=== PATIENT | male | born 1985 | race Caucasian/White ===

== ENCOUNTER 2021-08-31 12:38 | Emergency (ER) | payer SELFPAY ==
[2021-08-31] MEDS ORDERED: LACTATED RINGERS 1,000 ML IV STA (12:41)
[2021-08-31] MEDS ORDERED: FAMOTIDINE 20MG/2ML IV (PEPCID) IV STA (12:41)
--- NOTE | 2021-08-31 12:41 | ED General ---
General Stated Complaint: CHEST PAINS History of Present Illness Date Seen by Provider: Aug 31, 2021 Time Seen by Provider: 12:41 Initial Comments 36-year-old male presents with some upper body tightness. Patient reports that yesterday he drank at least 1/2 L of vodka. Patient reports that he normally does not drink. That today he is got upper body chest tightness, is what he is describing as spasms similar to a carpal spasm of his left hand. His tightness is over his complete upper body both sides. Patient reports that he drank because he is under a lot of stress going through a separation and divorce. Patient denies any shortness of breath, nausea, vomiting. He reports that he drank a bunch of water last night hoping to rehydrate. Allergies and Home Medications Allergies Coded Allergies: No Known Drug Allergies (Unverified , 08/31/21) Patient Home Medication List Home Medication List Reviewed: Yes Review of Systems Review of Systems Constitutional: see HPI; No chills, No fever EENTM: no symptoms reported Respiratory: no symptoms reported Cardiovascular: no symptoms reported Gastrointestinal: see HPI Genitourinary: no symptoms reported Musculoskeletal: see HPI Skin: no symptoms reported Psychiatric/Neurological: See HPI, Depressed, Emotional Problems Physical Exam Vital Signs Vital Signs - First Documented 08/31/21 13:27 Temp 37.0 Pulse 122 Resp 20 B/P (MAP) 141/101 (114) Pulse Ox 98 O2 Delivery Room Air Capillary Refill : Height, Weight, BMI Height: '" Weight: lbs. oz. kg; BMI Method: General Appearance: No Apparent Distress, WD/WN HEENT: PERRL/EOMI, TMs Normal Respiratory: Lungs Clear, Normal Breath Sounds Cardiovascular: Regular Rate, Rhythm, No Edema Gastrointestinal: Non Tender, Soft Extremity: Normal Capillary Refill, Normal Inspection, Normal Range of Motion, Other (Mild carpal spasm left hand) Neurologic/Psychiatric: Alert, Oriented x3, Other (Anxious) Progress/Results/Core Measures Suspected Sepsis SIRS Temperature: Pulse: Respiratory Rate: Laboratory Tests 08/31/21 12:53: White Blood Count 13.8H Blood Pressure / Mean: Laboratory Tests 08/31/21 12:53: Creatinine 0.99, Platelet Count 425H, Total Bilirubin 2.5H Results/Orders Lab Results Laboratory Tests Test 08/31/21 12:53 08/31/21 13:40 Range/Units White Blood Count 13.8 H 4.3-11.0 10^3/uL Red Blood Count 5.68 H 4.30-5.52 10^6/uL Hemoglobin 17.3 13.3-17.7 g/dL Hematocrit 46 40-54 % Mean Corpuscular Volume 82 80-99 fL Mean Corpuscular Hemoglobin 31 25-34 pg Mean Corpuscular Hemoglobin Concent 37 H 32-36 g/dL Red Cell Distribution Width 11.6 10.0-14.5 % Platelet Count 425 H 130-400 10^3/uL Mean Platelet Volume 9.5 9.0-12.2 fL Immature Granulocyte % (Auto) 0 % Neutrophils (%) (Auto) 72 42-75 % Lymphocytes (%) (Auto) 20 12-44 % Monocytes (%) (Auto) 7 0-12 % Eosinophils (%) (Auto) 0 0-10 % Basophils (%) (Auto) 0 0-10 % Neutrophils # (Auto) 10.0 H 1.8-7.8 10^3/uL Lymphocytes # (Auto) 2.8 1.0-4.0 10^3/uL Monocytes # (Auto) 0.9 0.0-1.0 10^3/uL Eosinophils # (Auto) 0.1 0.0-0.3 10^3/uL Basophils # (Auto) 0.1 0.0-0.1 10^3/uL Immature Granulocyte # (Auto) 0.0 0.0-0.1 10^3/uL Sodium Level 139 135-145 MMOL/L Potassium Level 3.3 L 3.6-5.0 MMOL/L Chloride Level 100 98-107 MMOL/L Carbon Dioxide Level 21 21-32 MMOL/L Anion Gap 18 H 5-14 MMOL/L Blood Urea Nitrogen 13 7-18 MG/DL Creatinine 0.99 0.60-1.30 MG/DL Estimat Glomerular Filtration Rate 103 BUN/Creatinine Ratio 13 Glucose Level 128 H 70-105 MG/DL Calcium Level 9.5 8.5-10.1 MG/DL Corrected Calcium 8.5-10.1 MG/DL Magnesium Level 1.9 1.6-2.4 MG/DL Total Bilirubin 2.5 H 0.1-1.0 MG/DL Aspartate Amino Transf (AST/SGOT) 66 H 5-34 U/L Alanine Aminotransferase (ALT/SGPT) 147 H 0-55 U/L Alkaline Phosphatase 114 40-136 U/L Troponin I < 0.30 <0.30 NG/ML Total Protein 7.8 6.4-8.2 GM/DL Albumin 5.1 H 3.2-4.5 GM/DL Lipase 18 8-78 U/L Serum Alcohol < 10 <10 MG/DL Urine Color DARK YELLOW Urine Clarity SL CLOUDY Urine pH 6.0 5-9 Urine Specific [place] 1.025 H 1.016-1.022 Urine Protein 2+ H NEGATIVE Urine Glucose (UA) NEGATIVE NEGATIVE Urine Ketones 1+ H NEGATIVE Urine Nitrite NEGATIVE NEGATIVE Urine Bilirubin 2+ H NEGATIVE Urine Urobilinogen 1.0 < = 1.0 MG/DL Urine Leukocyte Esterase NEGATIVE NEGATIVE Urine RBC (Auto) NEGATIVE NEGATIVE Urine RBC RARE /HPF Urine WBC 5-10 H /HPF Urine Squamous Epithelial Cells NONE /HPF Urine Crystals NONE /LPF Urine Bacteria FEW H /HPF Urine Casts PRESENT /LPF Urine Hyaline Casts 2-5 H /LPF Urine Mucus MODERATE H /LPF Urine Culture Indicated YES My Orders Orders - SAINZ,STEVE L DO Alcohol (08/31/21 12:41) Cbc With Automated Diff (08/31/21 12:41) Comprehensive Metabolic Panel (08/31/21 12:41) Magnesium (08/31/21 12:41) Ua Culture If Indicated (08/31/21 12:41) Troponin I Fs (08/31/21 12:41) Ed Iv/Invasive Line Start (08/31/21 12:41) Ekg Tracing (08/31/21 12:41) Monitor-Rhythm Ecg Trace Only (08/31/21 12:41) Lactated Ringers (Lr 1000 Ml Iv Solution (08/31/21 12:41) Famotidine Injection (Pepcid Injection) (08/31/21 12:41) Lactated Ringers (Lr 1000 Ml Iv Solution (08/31/21 13:06) Famotidine Injection (Pepcid Injection) (08/31/21 13:06) Lipase (08/31/21 13:41) Us Gallbladder [id number] (08/31/21 13:43) Urine Culture (08/31/21 13:40) Ceftriaxone 1 Gm Pre-Mix (Rocephin 1 Gm (08/31/21 14:31) Vital Signs/I&O 08/31/21 13:27 Temp 37.0 Pulse 122 Resp 20 B/P (MAP) 141/101 (114) Pulse Ox 98 O2 Delivery Room Air Capillary Refill : Progress Note : Progress Note Patient feeling significantly better following his IV fluid with his cramping is resolved. I suspect his symptoms are a combination of being hung over from his alcohol use yesterday and along with some anxiety. He does however have elevated white count and some elevated liver enzymes and bilirubin. Ultrasound did not show any acute findings but does show a fatty liver. Patient also has a urine that is suspicious for urinary tract infection. I will treat him with Rocephin along with doxycycline. Patient stable discharged ECG Initial ECG Impression Date: Aug 31, 2021 Initial ECG Impression Time: 12:44 Initial ECG Rate: 118 Initial ECG Rhythm: S.Tach Initial ECG Impression: Normal Comment Sinus tachycardia Departure Impression Primary Impression: Acute cystitis with hematuria Additional Impression: Acute alcohol overingestion Qualified Codes: F10.920 - Alcohol use, unspecified with intoxication, uncomplicated Disposition: 01 HOME, SELF-CARE Condition: Stable Departure-Patient Inst. Patient Instructions: Effects of Alcohol on Your Health, Urinary Tract Infection, Adult ED Add. Discharge Instructions: Follow-up with your primary care provider for recheck of your urine to ensure it clears Drink plenty of fluid Scripts Doxycycline Hyclate (Doxycycline Hyclate) 100 Mg Tablet 100 MG PO BID, #20 TAB 0 Refills Prov: STEVE SAINZ DO 08/31/21 STEVE SAINZ DO Aug 31, 2021 12:41
[2021-08-31 13:03] LABS: BASOPHILS # (AUTO) 0.1 10^3/uL (0.0-0.1); BASOPHILS % (AUTO) 0 % (0-10); EOSINOPHILS # (AUTO) 0.1 10^3/uL (0.0-0.3); EOSINOPHILS % (AUTO) 0 % (0-10); HEMATOCRIT 46 % (40-54); HEMOGLOBIN 17.3 g/dL (13.3-17.7); LYMPHOCYTES # (AUTO) 2.8 10^3/uL (1.0-4.0); LYMPHOCYTES % (AUTO) 20 % (12-44); MEAN CORPUSCULAR HEMOGLOBIN 31 pg (25-34); MEAN CORPUSCULAR HGB CONC 37 g/dL (32-36); MEAN CORPUSCULAR VOLUME 82 fL (80-99); MEAN PLATELET VOLUME 9.5 fL (9.0-12.2); MONOCYTES # (AUTO) 0.9 10^3/uL (0.0-1.0); MONOCYTES % (AUTO) 7 % (0-12); NEUTROPHILS % (AUTO) 72 % (42-75); PLATELET COUNT 425 10^3/uL (130-400); WHITE BLOOD COUNT 13.8 10^3/uL (4.3-11.0)
[2021-08-31] MEDS ORDERED: FAMOTIDINE 20MG/2ML IV (PEPCID) ONE (13:06)
[2021-08-31] MEDS ORDERED: LACTATED RINGERS 1,000 ML IV ONE (13:06)
[2021-08-31 13:20] LABS: BUN/CREATININE RATIO 13; CARBON DIOXIDE 21 MMOL/L (21-32); CHLORIDE 100 MMOL/L (98-107); CREATININE SERUM 0.99 MG/DL (0.60-1.30); GFR ESTIMATED 103; POTASSIUM 3.3 MMOL/L (3.6-5.0); SODIUM 139 MMOL/L (135-145)
[2021-08-31 13:21] LABS: ALANINE AMINOTRANSFERASE 147 U/L (0-55); ALKALINE PHOSPHATASE 114 U/L (40-136); BILIRUBIN,TOTAL 2.5 MG/DL (0.1-1.0); CALCIUM 9.5 MG/DL (8.5-10.1); GLUCOSE 128 MG/DL (70-105); MAGNESIUM 1.9 MG/DL (1.6-2.4)
[2021-08-31 13:23] LABS: ALBUMIN 5.1 GM/DL (3.2-4.5); TOTAL PROTEIN 7.8 GM/DL (6.4-8.2)
[2021-08-31 13:48] LABS: CLARITY,URINE SL CLOUDY; GLUCOSE, URINE (UA) NEGATIVE (NEGATIVE); KETONES,URINE 1+ (NEGATIVE); LEUKOCYTE ESTERASE ,URINE NEGATIVE (NEGATIVE); NITRITE,URINE NEGATIVE (NEGATIVE); PROTEIN,URINE 2+ (NEGATIVE)
[2021-08-31 14:02] LABS: COLOR,URINE DARK YELLOW
[2021-08-31 14:03] LABS: BACTERIA,URINE FEW /HPF; BILIRUBIN,URINE 2+ (NEGATIVE); RBC,URINE RARE /HPF
[2021-08-31] MEDS ORDERED: cefTRIAXone 1 GM PRE-MIX 50 ML IV STA (14:31)
[2021-08-31] MEDS ORDERED: DOXY100T2 PO (14:37)
--- NOTE | 2021-08-31 14:47 | Diagnostic Imaging Report ---
PROCEDURE: US Gallbladder. TECHNIQUE: Multiple real-time grayscale images were obtained over the right upper quadrant in various projections. INDICATION: Right upper quadrant abdominal pain. COMPARISON: None. FINDINGS: The size and echogenicity of the liver appear normal. There is no mass or intrahepatic biliary duct dilatation. The common bile duct is normal at 2 mm. The gallbladder wall and lumen are normal. There are no gallstones. The visualized pancreas, IVC, and aorta are normal. There is no ascites. IMPRESSION: Negative right upper quadrant ultrasound. Dictated by: Dictated on workstation # [id number]
[2021-08-31 15:07] VITALS: BP 133/83
== END 2021-08-31 15:00 | disposition home or self-care (01) ==
LOC: ER FS 12:39
DX: N30.01 Acute cystitis with hematuria (principal); F10.929 Alcohol use, unspecified with intoxication, unspecified
CPT/HCPCS: 36415; 76705; 80053; 81000; 83690; 83735; 84484; 85025; 87088; 93005; 99284; G0480; 80320